=== PATIENT | male | born 1985 | race Caucasian/White ===

== ENCOUNTER → 2022-12-02 15:00 | Outpatient (REF) | payer MEDICARE, MEDICAID, SELFPAY ==
--- NOTE | 2022-12-02 15:09 | CA_ITS ---
Transthoracic Echocardiogram Patient (Last, First, Middle): Tremaine Witt, Gender: Male Date of : 1985 Age: 37 Procedure Date: 12/02/2022 Procedure Type: Transthoracic Echocardiogram Location: [facility] Height: 165.1 cm Weight: 49.9 kg BSA: 1.53 m2 Heart Rate: bpm BP: 132 / 86 mmHg Chair Car Attendant: [email or web address] Referring MD: Diann Talavera RN Symptoms: [id number] SYNCOPE COLLAPSE Study Quality: Adequate ECG Rhythm: Sinus Conclusions: - The left ventricular systolic function is normal. The calculated ejection fraction is 55% by biplane method. - Mildly diminished LV peak global longitudinal strain at -15.6%. - There is mild aortic valve regurgitation. Findings Left Ventricle Normal left ventricular cavity size. There is normal left ventricular wall thickness. The left ventricular systolic function is normal. The calculated ejection fraction is 55% by biplane method. There is no evidence of regional wall motion abnormalities. Diastolic function is normal for age. Mildly diminished LV peak global longitudinal strain at -15.6%. Right Ventricle Normal right ventricular cavity size and systolic function. Atria Both atria are normal in size. Aortic Valve The aortic valve was not well visualized. There is mild thickening of the aortic valve. There is no aortic valve stenosis. There is mild aortic valve regurgitation. Mitral Valve The mitral valve appears normal. There is no mitral valve regurgitation. There is no mitral valve stenosis. Pulmonic Valve The pulmonic valve is likely normal. Tricuspid Valve Normal tricuspid valve structure. There is trace tricuspid valve regurgitation. There is no evidence of pulmonary hypertension. Great Vessels The asc aorta is normal in size. Venous The inferior vena cava is normal in size and collapses greater than 50% with inspiration. Pericardium/Pleural There is no evidence of pericardial effusion. Prior Study Comparison No prior study available for comparison. Measurements 2D Linear Measurements IVSd: 0.93 0.6-0.9/0.6-1.0 cm LVIDd: 4.06 3.9-5.3/4.2-5.9 cm LVIDd Index: 2.65 2.4-3.2/2.2-3.1 cm/m2 LVIDs: 3.26 2.0-3.6 cm LVPWd: 0.89 0.7-1.1 cm LA Diam: 2.50 2.7-3.8/3.0-4.0 cm LAIDs Index: 1.63 1.5-2.3 cm/m2 LV Mass: 141.83 67-162/88-224 g LV Mass Index: 92.70 43-95/49-115 g/m2 LVOT Diam: 2.10 3.0+(-)1.3 cm 2D Systolic Function EF 4C: 58.60 >55% EF 2C: 52.20 >55% EF BiP: 55.10 >55% Mitral Valve MV Pk E: 0.84 MV PK A: 0.65 MV Decel Time: 249.00 E/A: 1.30 E'Lateral: 12.80 E'Medial: 7.83 E/E' Med: 10.70 E/E' Lat: 6.60 PHT: 73.00 MVA PHT: 3.01 Decel [place]: 3.38 Aortic Valve AoV Pk Luis F: 1.02 AoV Mn Luis F: 0.70 AoV VTI: 0.21 AoV Pk Grad: 4.00 Aov Mn Grad: 2.00 ROSANA Cont.VTI: 3.02 LVOT LVOT Pk Luis F: 0.82 LVOT Mn Luis F: 0.62 LVOT VTI: 0.19 LVOT Pk Grad: 3.00 LVOT Mn Grad: 2.00 LVOT Diam: 2.10 LVOT Area: 3.46 Diastolic Function MV Pk E: 0.84 MV Pk A: 0.65 E/A: 1.30 E'Medial: 7.83 E/E' Med: 10.70 E' Laterial: 12.80 E/E' Lat: 6.60 Right Ventricle TAPSE (mm): 24.00 TVS' Luis F: 9.79 Tricuspid Valve RA Press: 3.00 Great Vessels Aorta Sinus of Valsalva: 3.35 2.0-3.5 cm Ao Asc: 2.70 2.1-3.4 cm Updated in Other Vendor System with Status of Final Valdo Goncalves MD electronically signed on 12/03/2022 11:42:13 AM with status of Final
== END ==
LOC: HO.CARD 15:00
PROVIDERS: PCP Student in an Organized Health Care Education/Training Program; Visit Provider Student in an Organized Health Care Education/Training Program
DX: R55 Syncope and collapse (principal)
CPT/HCPCS: 93306